=== PATIENT | male | born 1970 | race African-American/Black ===

== ENCOUNTER 2024-01-22 12:17 | Emergency (ER) | payer SELFPAY ==
[~2024-01-22] VITALS: Ht 175.3 cm; Wt 75.0 kg
[2024-01-22 12:21] VITALS: BP 150/100; PULSE 100; RESP 18; TEMP 98.2; O2SAT 99
[2024-01-23] MEDS ORDERED: ESCI-8 PO (10:33)
[2024-01-23] MEDS ORDERED: AMLO10TA55 PO (10:33)
[2024-01-23] MEDS ORDERED: ATOR40TA71 PO (10:33)
[2024-01-23] MEDS ORDERED: LISI40TA9 PO (10:33)
[2024-01-23] MEDS ORDERED: MELA10TA2 PO (10:33)
[2024-01-23] MEDS ORDERED: ACET-3385 PO (12:14)
[2024-01-23] MEDS ORDERED: IBUP-1492 PO (12:14)
== END 2024-01-22 14:43 | disposition left against medical advice (07) ==
LOC: EMS 12:34
DX: M54.50 Low back pain, unspecified (principal); M25.561 Pain in right knee; Z53.21 Procedure and treatment not carried out due to patient leaving prior to being seen by health care provider

== ENCOUNTER 2024-01-23 10:24 | Emergency (ER) | payer OTHER ==
[~2024-01-23] VITALS: Ht 175.3 cm; Wt 75.0 kg
[2024-01-23 10:30] VITALS: BP 137/101; PULSE 100; RESP 18; TEMP 98.6; O2SAT 98
[2024-01-23] MEDS ORDERED: AMLO10TA55 PO (10:33)
[2024-01-23] MEDS ORDERED: MELA10TA2 PO (10:33)
[2024-01-23] MEDS ORDERED: ATOR40TA71 PO (10:33)
[2024-01-23] MEDS ORDERED: LISI40TA9 PO (10:33)
[2024-01-23] MEDS ORDERED: ESCI-8 PO (10:33)
[2024-01-23] MEDS: ACETAMINOPHEN 500 MG TABLET PO ONE (11:30)
[2024-01-23] MEDS ORDERED: IBUP-1492 PO (12:14)
[2024-01-23] MEDS ORDERED: ACET-3385 PO (12:14)
== END 2024-01-23 12:25 | disposition home or self-care (01) ==
LOC: EMS 10:24
DX: S39.012A Strain of muscle, fascia and tendon of lower back, initial encounter (principal); M25.561 Pain in right knee; I10 Essential (primary) hypertension; E78.00 Pure hypercholesterolemia, unspecified; Z91.199 Patient's noncompliance with other medical treatment and regimen due to unspecified reason; Z79.899 Other long term (current) drug therapy; W22.8XXA Striking against or struck by other objects, initial encounter; Y93.89 Activity, other specified; Y92.89 Other specified places as the place of occurrence of the external cause; Y99.0 Civilian activity done for income or pay
CPT/HCPCS: 99283

== ENCOUNTER 2024-01-31 11:19 | Emergency (ER) | payer OTHER ==
[~2024-01-31] VITALS: Ht 175.3 cm; Wt 77.3 kg
[~2024-01-31 11:19] MED LIST: ACET-3385 PO; AMLO10TA55 PO; ATOR40TA71 PO; ESCI-8 PO; IBUP-1492 PO; LISI40TA9 PO; MELA10TA2 PO
[2024-01-31 11:23] VITALS: BP 145/100; PULSE 92; RESP 18; TEMP 98.5; O2SAT 99
[2024-01-31] MEDS ORDERED: NALO4SPR5 NASAL (12:27)
[2024-01-31] MEDS: KETOROLAC TROMETHAMINE 30 MG/ML VIAL IM ONE (12:38)
[2024-01-31] MEDS: LIDOCAINE 5% TRANSDERMAL PATCH TD ONE (12:38)
[2024-01-31] MEDS ORDERED: LIDO700A15 TP (12:50)
== END 2024-01-31 13:10 | disposition home or self-care (01) ==
LOC: EMS 11:19
DX: S39.012A Strain of muscle, fascia and tendon of lower back, initial encounter (principal); E78.00 Pure hypercholesterolemia, unspecified; I10 Essential (primary) hypertension; Z98.890 Other specified postprocedural states; W19.XXXA Unspecified fall, initial encounter; Y93.89 Activity, other specified; Y92.89 Other specified places as the place of occurrence of the external cause; Y99.8 Other external cause status
CPT/HCPCS: 99283; 96372; J1885